=== PATIENT | female | born 1930 | race Caucasian/White ===

== ENCOUNTER 2016-05-02 17:40 | Emergency (ER) | payer OTHER ==
[~2016-05-02] VITALS: Ht 152.4 cm; Wt 48.4 kg
[~2016-05-02 17:40] MED LIST: ALPRAZOLAM0.5 MG PO; AMLODIPINE BES2.5 MG PO; CELEBREX200 MG PO; Chronulac,Cephulac,E PO; ELIQUIS5 MG PO; FETZIMA120 MG PO; LEVOTHYROXINE88 MCG PO; LOPRESSOR25 MG PO; PAROXETINE HCL10 MG PO; PROTONIX40 MG PO; RANITIDINE HCL150 MG PO; RITALIN20 MG PO; ST. JOSEPH ASPI81 MG PO; STOOL SOFTENER100 M1 PO; TRAMADOL HCL50 MG PO; ZOCOR20 MG PO
[2016-05-02] MEDS ORDERED: KEFLEX500 MG PO (19:54)
[2016-05-02 20:20] VITALS: BP 150/65
== END 2016-05-02 20:20 | disposition home or self-care (01) ==
LOC: EME 17:40
PROC: 0HQ1XZZ Repair Face Skin, External Approach (ICD-10-PCS; principal; 2016-05-02)
DX: S01.111A Laceration without foreign body of right eyelid and periocular area, initial encounter (principal); S02.2XXA Fracture of nasal bones, initial encounter for closed fracture; M79.642 Pain in left hand; W01.198A Fall on same level from slipping, tripping and stumbling with subsequent striking against other object, initial encounter; Y92.009 Unspecified place in unspecified non-institutional (private) residence as the place of occurrence of the external cause; R29.6 Repeated falls; E03.9 Hypothyroidism, unspecified
CPT/HCPCS: 70450; 70486; 73130; 99281; 99284

== ENCOUNTER 2016-06-30 13:30 | Observation (INO) | payer OTHER ==
[~2016-06-30] VITALS: Ht 152.4 cm; Wt 47.7 kg
[~2016-06-30 13:30] MED LIST changes: +KEFLEX500 MG PO
[2016-06-30 13:56] LABS: MCH 27.2 PG (29.0-34.0); MCHC 31.1 G/DL (30.0-36.0); MCV 87.6 FL (83-99); RBC DIS.WIDTH-CV 15.6 % (11.8-14.6); RBC DIS.WIDTH-SD 49.8 % (39-53); RED BLOOD COUNT 4.34 M/uL (3.80-5.20); WHITE BLOOD COUNT 9.8 K/uL (4.1-10.2)
[2016-06-30 14:07] LABS: CHLORIDE 108 mEq/L (99-109); POTASSIUM 4.6 mEq/L (3.7-5.4); SODIUM 140 mEq/L (136-147)
[2016-06-30 14:09] LABS: GLUCOSE 110 mg/dL (70-99)
[2016-06-30 14:11] LABS: ANION GAP 7 MEQ/L (2-14); TOTAL BILIRUBIN 0.4 mg/dL (0.0-1.0)
[2016-06-30 14:13] LABS: ALKALINE PHOSPHATASE 78 IU/L (3-129); GFR ESTIMATE (CALCULATED) > 59 mL/min/
[2016-06-30 14:14] LABS: UREA NITROGEN (BUN) 14 mg/dL (9-23)
[2016-06-30 14:16] LABS: LIPASE 58 U/L (1.0-51.0)
[2016-06-30 15:03] LABS: HEMATOLOGY COMMENT 1 SN; MEAN PLAT.VOLUME 11.4 uM^3 (9.5-12.4); PLATELET COUNT 274 K/uL (156-360)
[2016-06-30 16:30] LABS: ADD MIUA? YES; BILIRUBIN NEGATIVE; BLOOD NEGATIVE; COLOR YELLOW ((YELLOW)); GLUCOSE (STRIP) NEGATIVE; KETONES NEGATIVE; LEUKOCYTES SMALL; NITRITE NEGATIVE; PROTEIN (STRIP) NEGATIVE; UROBILINOGEN 0.2 MG/DL (0.2-1.0)
[2016-06-30 16:39] LABS: BACTERIA NONE SEEN /HPF; EPITHELIAL CELLS RARE /HPF; HYALINE CASTS 0-5 /LPF; MUCUS 2+ /LPF; RED BLOOD CELLS 0-5 /HPF (0-5); UCUL ADDED? NO
[2016-06-30] MEDS ORDERED: ZYPREXA5 MG PO (18:16)
[2016-06-30] MEDS ORDERED: DONEPEZIL HCL5 MG PO (18:16)
[2016-06-30] MEDS ORDERED: WELLBUTRIN SR200 MG PO (18:17)
[2016-06-30 20:14] VITALS: BP 111/55
[2016-06-30 23:25] VITALS: BP 121/58
[2016-07-01 03:49] VITALS: BP 116/52
[2016-07-01 08:16] LABS: POINT-OF-CARE METER ID UU13113831
[2016-07-01 08:28] VITALS: BP 135/50
[2016-07-01] MEDS ORDERED: CIPROFLOXACIN250 MG PO (11:03)
[2016-07-01] MEDS ORDERED: MIRALAX17 GM PO (11:06)
[2016-07-01 11:34] VITALS: BP 141/81
== END 2016-07-01 18:00 | disposition home or self-care (01) ==
LOC: EME 13:30 → EDOF 18:03 → 5WEST 18:03
PROVIDERS: Emergency Medicine; Hospitalist
DX: R11.2 Nausea with vomiting, unspecified (principal); K59.00 Constipation, unspecified; N39.0 Urinary tract infection, site not specified; F32.9 Major depressive disorder, single episode, unspecified; F03.90 Unspecified dementia, unspecified severity, without behavioral disturbance, psychotic disturbance, mood disturbance, and anxiety; E03.9 Hypothyroidism, unspecified; F41.9 Anxiety disorder, unspecified
CPT/HCPCS: 74176; 80053; 81003; 82948; 83690; 85027; 99281; 99285; G0378; J1644; J1956; J2405; J7030; S0028

== ENCOUNTER 2016-10-12 10:33 | Emergency (ER) | payer OTHER ==
[~2016-10-12] VITALS: Ht 160 cm; Wt 48.9 kg
[~2016-10-12 10:33] MED LIST changes: +CIPROFLOXACIN250 MG PO; +DONEPEZIL HCL5 MG PO; +MIRALAX17 GM PO; +WELLBUTRIN SR200 MG PO; +ZYPREXA5 MG PO
[2016-10-12 11:26] LABS: EOSINOPHIL (%) 1.7 % (0-5); EOSINOPHIL COUNT 0.2 K/uL (0-0.3); HEMATOCRIT 35.3 % (36.0-46.0); IMMATURE GRANULOCYTE (%) 0.7 % (0.0-0.7); IMMATURE GRANULOCYTE COUNT 0.1 K/uL; MCH 26.8 PG (29.0-34.0); MCHC 30.9 G/DL (30.0-36.0); MCV 86.7 FL (83-99); MEAN PLAT.VOLUME 10.8 uM^3 (9.5-12.4); MONOCYTE (%) 9.5 % (3-12); MONOCYTE COUNT 0.9 K/uL (0-0.8); NEUTROPHIL (%) 66.2 % (45-76); PLATELET COUNT 378 K/uL (156-360); RBC DIS.WIDTH-CV 13.9 % (11.8-14.6); RBC DIS.WIDTH-SD 44.2 % (39-53); RED BLOOD COUNT 4.07 M/uL (3.80-5.20); WHITE BLOOD COUNT 9.1 K/uL (4.1-10.2)
[2016-10-12 11:29] LABS: ADD MIUA? YES; BILIRUBIN NEGATIVE; BLOOD NEGATIVE; COLOR YELLOW ((YELLOW)); GLUCOSE (STRIP) NEGATIVE; KETONES 20; LEUKOCYTES NEGATIVE; NITRITE NEGATIVE; PROTEIN (STRIP) NEGATIVE; SPECIFIC GRAVITY 1.014 (1.000-1.030)
[2016-10-12 11:36] LABS: CHLORIDE 104 mEq/L (99-109); POTASSIUM 4.4 mEq/L (3.7-5.4); SODIUM 141 mEq/L (136-147)
[2016-10-12 11:37] LABS: INTER. NORMALIZED RATIO 1.1; MAGNESIUM 1.6 mg/dL (1.3-2.7); PROTHROMBIN TIME 10.9 (9.2-11.2); PTT 26.8 (25-32)
[2016-10-12 11:38] LABS: GLUCOSE 94 mg/dL (70-99)
[2016-10-12 11:40] LABS: ANION GAP 12 MEQ/L (2-14)
[2016-10-12 11:42] LABS: GFR ESTIMATE (CALCULATED) > 59 mL/min/
[2016-10-12 11:43] LABS: UREA NITROGEN (BUN) 11 mg/dL (9-23)
[2016-10-12 11:45] LABS: CREATINE KINASE 112 IU/L (1-294)
[2016-10-12 11:50] LABS: BACTERIA NONE SEEN /HPF; CALCIUM OXALATE CRYSTALS 2+ /HPF; EPITHELIAL CELLS RARE /HPF; MUCUS TRACE /LPF; RED BLOOD CELLS 0-5 /HPF (0-5); UCUL ADDED? NO; WHITE BLOOD CELLS 0-5 /HPF (0-5); WHITE BLOOD CELLS CLUMP FEW /HPF (0-5)
[2016-10-12 14:29] VITALS: BP 137/53
== END 2016-10-12 14:31 | disposition home or self-care (01) ==
LOC: EME 10:33
PROVIDERS: Emergency Medicine
DX: R53.1 Weakness (principal); D64.9 Anemia, unspecified; F03.90 Unspecified dementia, unspecified severity, without behavioral disturbance, psychotic disturbance, mood disturbance, and anxiety; K21.9 Gastro-esophageal reflux disease without esophagitis
CPT/HCPCS: 70450; 71010; 80048; 81003; 82550; 83735; 85025; 85610; 85730; 99281; 99284; J7030